=== PATIENT | male | born 1970 | race Caucasian/White ===

== ENCOUNTER 2025-02-20 14:50 | Outpatient (AMB) | payer OTHER, SELFPAY ==
--- NOTE | 2025-02-20 14:51 | A.OFFPC_ITS ---
Vital Signs 02/20/25 14:52 Height 5 ft 7 in Weight 188 lb 6 oz BMI 29.5 BP 116/74 Blood Pressure Location Lt brachial Position Sitting Pulse 78 Pulse Source Pulse Oximeter Pulse Oximetry (%) 99 Oxygen Delivery Method Room Air Intake Visit Reasons: establish care Sports Manager Required: No Accompanied by: Self / Same As Patient Allergies No Known Allergies Allergy (Verified 02/20/25 15:10) Medication List - Last Reconciled 02/20/25 by Jose Cat MD No Known Home Meds Tobacco use date assessed: 02/20/25 Dental Screening Dental Screen Date: 02/20/25 Did you have a dental visit in the last 12 months?: No Did you have a dental problem in the last 6 months where you did not have access to dental care?: No Was dental information given to patient?: No HPI establish care HPI Details Patient comes in today for his annual physical examination and to establish care - is a new patient to the practice His previous PCP was Dr. Immanuel Kraft at [facility] and states that he had to [facility] because his previous PCP is no longer accepting his health insurance Patient states that he feels okay overall Recalls that he hurt his left shoulder a few years ago when he fell while andrzej og baseball with his son but never did get his shoulder checked out since and lately has been experiencing increased pain in left shoulder, with limited ROM due to pain He also has noticed a raised skin lesion on the left side of his abdomen that he would like to have checked out further He denies any headaches or dizziness Denies any chest pains, no increased shortness of breath No nausea/vomiting, no abdominal pain No change in bowel habits noted He denies any acute urinary symptoms He is also requesting to be sent for lung cancer screening as he was a previous smoker although he quit years ago [facility] Medical History (Updated 02/22/25 @ 05:13 by Jose Cat MD) Overweight (BMI 25.0-29.9) Circumcision complication Surgical History (Updated 02/22/25 @ 05:09 by Jose Cat MD) Hx of circumcision History of colonoscopy Social History Housing: House Patient Tobacco Use Status: Current everyday Tobacco user e-Cigarette/Vaping Use: Former Use service: No Current occupational status: employed Current occupational exposures/hazards: No Cognitive needs: No Hearing needs: No Vision needs: Yes Questionnaire PHQ-9 Over the last 2 weeks, how often have you been bothered by any of the following problems? 1. Little interest or pleasure in doing things: not at all 2. Feeling down, depressed, or hopeless: not at all 3. Trouble falling or staying asleep, or sleeping too much: not at all 4. Feeling tired or having little energy: not at all 5. Poor appetite or overeating: not at all 6. Feeling bad about yourself - or that you are a failure or have let yourself or your family down: not at all 7. Trouble concentrating on things, such as reading the newspaper or watching television: not at all 8. Moving or speaking so slowly that other people could have noticed. Or the opposite - being so fidgety or restless that you have been moving around a lot more than usual: not at all 9. Thoughts that you would be better off or of hurting yourself in some way: not at all Total score: 0 Depression Screening Interpretation: Negative Depression Screening Done: Yes 08892 - PHQ-9 Billing: Yes Source: Developed by Drs. Roberto Solis, Malathi Alejandra, Tito Villalta and colleagues, with an educational kathi from [employer]. Thrive Questionnaire Date Thrive assessed: 02/20/25 I am a: Patient What is your living situation today?: I have a steady place to live Within the past 12 months, did the food you bought not last and you didn't have the money to get more?: Never true Within the past 12 months, did you worry whether your food would run out before you got money to buy more?: Never true Do you have trouble paying for medicines?: No Do you have trouble getting transportation to medical appointments?: No Do you have trouble paying your heating and electricity bill?: No Do you have trouble taking care of your child, family member or friend?: No Do you have trouble with day-to-day activities such as bathing, preparing meals, shopping, managing finances, etc.?: No Are you currently unemployed and looking for a job?: No Are you interested in more education?: No Please select the resources that you would like help with: None Currently or been in a relationship where the following occur: No concerns reported THRIVE Score: 0 AUDIT C Alcohol Use Questionnaire (AUDIT-C) 1. How often do you have a drink containing alcohol?: 4 or more times a week 2. How many drinks containing alcohol do you have on a typical day when you are drinking?: 1 or 2 3. How often do you have six or more drinks on one occasion?: Monthly Total Score: 6 Score Reviewed/Action Taken: Yes RAHUL-7 AMB Questionnaire RAHUL-7 Date RAHUL - 7 assessed: 02/20/25 Feeling nervous, anxious, or on edge: 0 = Not at all Not being able to stop or control worryin = Not at all Worrying too much about different things: 0 = Not at all Trouble relaxin = Not at all Being so restless that it is hard to sit still: 0 = Not at all Becoming easily annoyed or irritable: 0 = Not at all Feeling afraid as if something awful might happen: 0 = Not at all Total RAHUL-7 score (0-4 normal; 5-9 mild; 10-14 moderate; 15-21 severe): 0 Source: Developed by Drs. Roberto Solis, Malathi Alejandra, Tito Villalta and colleagues, with an educational kathi from [employer]. Review of Systems Const Denies chills, Denies fatigue, Denies fever(s), Denies headache(s), Denies malaise and Denies weakness Eyes Denies blurry vision, Denies change in vision, Denies irritation and Denies itchy eyes ENT Denies dysphagia, Denies dizziness, Denies otalgia, Denies headache(s), Denies nasal congestion, Denies neck pain, Denies odynophagia and Denies sore throat Card Denies chest pain, Denies rapid heart rate, Denies irregular heart rhythm, Denies palpitations and Denies dyspnea Resp Denies chest congestion, Denies cough, Denies dyspnea and Denies wheezing GI Denies abdominal pain, Denies bloating, Denies constipation, Denies dysphagia, Denies heartburn, Denies diarrhea, Denies nausea, Denies odynophagia and Denies vomiting Denies hematuria, Denies difficulty urinating, Denies dysuria, Denies urinary frequency and Denies urinary urgency Musc Denies back pain, Denies arthralgias, Denies joint swelling, Denies muscle weakness and Denies neck pain Skin/Breast Details: (+) small, slightly raised, hyperpigmented skin lesion on the left side of the abdomen Denies change in pigmentation, Denies rash and Denies unusual bruising Neuro Denies dizziness, Denies headache(s), Denies paresthesias and Denies weakness Endo Denies fatigue and Denies palpitations Aller/Immun Denies itchy eyes and Denies wheezing Physical exam (Primary Care) Vital Signs: Last Vital Signs Pulse 78 02/20/25 14:52 BP 116/74 02/20/25 14:52 Pulse Ox 99 02/20/25 14:52 Oxygen Delivery Method Room Air 02/20/25 14:52 BMI result Body Mass Index 29.5 Tobacco/Smoking Status: Tobacco use Status Tobacco use date assessed 02/20/25 02/20/25 15:01 Patient Tobacco Use Status Current everyday Tobacco 02/20/25 15:01 e-Cigarette/Vaping Use Former Use 02/20/25 15:01 PHQ-9: PHQ-9 Score PHQ-9: Total score 0 02/20/25 15:14 Depression Screening Interpretation: Negative Thrive Assessment: Date of Thrive Assessment Date Thrive assessed 02/20/25 02/20/25 15:01 Currently or been in a relationship where the following occur: No concerns reported Const General: no acute distress, alert and awake Orientation/consciousness: patient oriented x3 HENMT Head: Yes normocephalic and Yes atraumatic Ears: external ears normal, TM's normal bilaterally and EAC's normal General nose exam: No nasal discharge present Face and sinus: Yes normal facial exam and Yes sinuses nontender Teeth and gingiva: dentition normal Throat: Yes posterior oropharynx normal and Yes tonsils normal (no TP congestion) Eyes Eyelids: Yes eyelids normal Conjunctivae: conjunctivae normal Pupils: Equal, round and reactive pupils present EOM: EOMs intact bilaterally Neck Neck: Yes no lymphadenopathy and Yes supple Thyroid: Thyroid normal Resp Auscultation: clear to auscultation bilaterally, no rales and no wheezes Cardio Rate: regular rate Rhythm: regular rhythm Heart sounds: no murmurs GI Palpation (GI): Soft to palpation, nontender and No hepatosplenomegaly present Auscultation: normal bowel sounds General: Yes no CVA tenderness Back/Spine/Pelvis Back: no CVA tenderness Thoracic/Lumbar Spine: thoracic and lumbar spine normal to inspection Skin Other: (+) small, slightly raised, hyperpigmented skin lesion on the left abdominal wall anteriorly Rashes: no rashes Neuro General: patient oriented x3, moves all extremities, no focal motor deficits and CN's II-XI intact bilaterally Cranial nerves: Yes Equal, round and reactive pupils present Cognition (Neuro): normal cognition Gait exam (Neuro): Normal gait present Extrem General: Yes no clubbing, cyanosis or edema Coding Level of Care Code New Pt Prev Care 40-64y(50884) Diagnoses Annual physical exam Z00.00 Left shoulder pain, unspecified chronicity M25.512 Chronicity: unspecified Hyperpigmented skin lesion L81.9 Ex-smoker Z87.891 Overweight (BMI 25.0-29.9) E66.3 Additional Codes PHQ-9 - 51246 - PHQ-9 Billing: Yes ([id number]) Assessment & Plan Assessment & Plan (1) Annual physical exam: Code(s): Z00.00 - Encounter for general adult medical examination without abnormal findings Category: Medical Plan: Check labs States that he is currently up-to-date with his colon cancer screening - we will try to get his records from his previous PCP for documentation (2) Left shoulder pain: Code(s): M25.512 - Pain in left shoulder Category: Medical Qualifiers: Chronicity: unspecified Qualified Code(s): M25.512 - Pain in left shoulder Plan: Will send patient for x-rays of the left shoulder for further evaluation Have advised patient that depending on his x-ray report, we will then determine were to refer him to for further management of shoulder pain, whether it is physical therapy or orthopedics (3) Hyperpigmented skin lesion: Code(s): L81.9 - Disorder of pigmentation, unspecified Category: Medical Plan: Per request, we will refer him to dermatology for further evaluation and management (4) Ex-smoker: Code(s): Z87.891 - Personal history of nicotine dependence Category: Social Hx Plan: Patient states that he quit smoking years ago and is requesting to be sent for lung cancer screening Will send patient for CT lung screening, per request (5) Overweight (BMI 25.0-29.9): Code(s): E66.3 - Overweight Category: Medical Plan: Reinforced diet/exercise as tolerated/lose weight Plan Follow up in 4 months Orders: Orders XR shoulder LT min 2V 02/20/25 M25.512 - Pain in left shoulder TSH reflex Free T4 02/21/25 E78.00 - Pure hypercholesterolemia, unspecified, Z00.00 - Encounter for general adult medical examination without abnormal findings Prostate Specific Antigen 02/21/25 N40.0 - Benign prostatic hyperplasia without lower urinary tract symptoms, Z00.00 - Encounter for general adult medical examination without abnormal findings Vitamin B12 and Folate 02/21/25 E53.8 - Deficiency of other specified B group vitamins CT lung screening 02/20/25 Z87.891 - Personal history of nicotine dependence Complete Blood Count Auto Diff 02/21/25 D64.9 - Anemia, unspecified, Z00.00 - Encounter for general adult medical examination without abnormal findings Lipid Panel 02/21/25 E78.00 - Pure hypercholesterolemia, unspecified, Z00.00 - Encounter for general adult medical examination without abnormal findings Comprehensive [place]. Panel Fast 02/21/25 E78.00 - Pure hypercholesterolemia, unspecified, Z00.00 - Encounter for general adult medical examination without abnormal findings UA CC w/rflx Micro + Cult 02/21/25 R30.0 - Dysuria, Z00.00 - Encounter for general adult medical examination without abnormal findings Vitamin D 25-OH Total 02/21/25 E55.9 - Vitamin D deficiency, unspecified, Z00.00 - Encounter for general adult medical examination without abnormal findings Referrals Dermatology Referral L81.9 - Disorder of pigmentation, unspecified
[2025-02-20 14:52] VITALS: BP 116/74; PULSE 78; O2SAT 99; BMI 29.5
--- OUTSIDE RECORDS SUMMARY | 2025-02-20 17:25 | XMS_ITS | Clinical Summary ---
Author Organization [employer] [place] [facility] it Address [address] [place] [address] Care Team Providers Care Bi Application Developer Name Role Phone Immanuel Kraft MD Primary Care Provider [phone] Allergies No known active allergies Medications naproxen (NAPROSYN) 500 mg tablet Take 1 tablet (500 mg total) by mouth 2 (two) times a day with meals. 10/27/2023 Active diclofenac (Voltaren Arthritis Pain) 1 % topical gel Apply 4gm to area up to 4 x daily 04/30/2020 Active sildenafiL (VIAGRA) 100 mg tablet Start with 1/2 tablet and increase to 1 tablet as needed 30-60 minutes before intercourse. Max is 100mg in 24 hours. 12/18/2018 Active Active Problems Problem Noted Date Diagnosed Date High cholesterol 02/07/2017 Erectile dysfunction 12/26/2015 Onychomycosis 12/26/2015 Overweight 12/26/2015 Anemia 06/03/2014 Lumbago 04/27/2013 Immunizations Name Administration Dates Next Due Influenza, Unspecified 09/05/2019,07/23/2015 Moderna SARS-CoV-2 COVID-19, mRNA, LNP-S, preservative free 04/04/2022,06/27/2021,04/29/2021 Td Tetanus diptheria (Tdvax) 7yo and older 12/26 Tdap Tetanus diptheria acell ular pertussis (Boostrix; Adacel) 7yo and older 02/23/2010 Surgical History Surgery Date Site/Laterality Comments WISDOM TOOTH EXTRACTION PROCEDURE: HISTORICAL WISDOM TEETH EXTRACTION OTHER SURGICAL HISTORY PROCEDURE: MI REPAIR INCOMPLETE CIRCUMCISION COLONOSCOPY 07/2010 PROCEDURE: HISTORICAL COLONOSCOPY; COMMENT: Normal. COLONOSCOPY 07/31/2020 PROCEDURE: HISTORICAL COLONOSCOPY; COMMENT: Diminutive sigmoid colon polyps x2: Hyperplastic x1, tubular adenoma x1. Medical History Medical History Date Comments High cholesterol DX:High cholest marnie Family History Medical History Relation Name Comments Diabetes Father Stroke Paternal Grandfather Relation Name Status Comments Brother 1 Alive Brother 2 Alive Brother 3 Alive Daughter Alive Father Maternal Grandfather Maternal Grandmother Mother Alive Paternal Grandfather Paternal Grandmother Sister 1 Alive Sister 2 Alive Sister 3 Alive Sister 4 Alive Son Alive Social History Tobacco Use Types Packs/Day Years Used Date Smoking Tobacco: Former Cigarettes Q uit: 11/21/2004 Smokeless Tobacco: Never Alcohol Use Standard Drinks/Week Comments Yes 12 (1 standard drink = 0.6 oz pu re alcohol) Sex and Gender Information Value Date Recorded Sex Assigned at Not on file Legal Sex Male 2:08 AM EST Gender Identity Not on file Sexual Orientation Not on file Obstetrics History Last Filed Vital Signs Vital Sign Reading Time Taken Comments Blood Pressure 102/60 09/20/2023 1:26 PM EDT Pulse 52 09/20/2023 1:26 PM EDT Temperature - - Respiratory Rate - - Oxygen Saturation - - Inhaled Oxygen Concentration - - Weight 93 kg (205 lb) 09/20/2023 1:26 PM EDT Height 167.6 cm (5' 6 ) 09/20/2023 1:26 PM EDT Body Mass Index 33.09 09/20/2023 1:26 PM EDT Plan of Treatment Health Maintenance Due Date Last Done Comments Hepatitis B Vaccines (1 of 3 - 19+ 3-dose series) 1987 Pneumococcal Vaccine: 50+ Years (1 of 1 - PCV) 2018 Zoster Vaccines (1 of 2) 2018 Depression Screening 10/24/2022 HIV Screening 10/24/2022 Hepatitis C Screening 10/24/2022 Social Influencers of Health Screening 10/24/2022 COVID-19 Vaccine (2023-2 5 season) 2024 04/04/2022, 06/27/2021, 04/29/2021 Influenza Vaccine (#1) 2024 9, 07/23/2015 Cholesterol Screening (Lipid Panel) 05/20/2027 05/20/2022 Colorectal Cancer Screening: Colonoscopy 07/31/2027 07/31/2020 DTaP,Tdap,and Td Vaccines (3 - Td or Tdap) 12/26/2029 12/26/2019, 02/23/2010 HIB Vaccines Aged Out No longer eligi ble based on patient's age to complete this topic HPV Vaccines Aged Out No longer eligi ble based on patient's age to complete this topic Hepatitis A Vaccines Aged Out No long er eligible based on patient's age to complete this topic IPV Vaccines Aged Out No longer eligi ble based on patient's age to complete this topic MMR Vaccines Aged Out No longer eligi ble based on patient's age to complete this topic Meningococcal ACWY Vaccine Aged Out N o longer eligible based on patient's age to complete this topic Meningococcal B Vacine Aged Out No lo nger eligible based on patient's age to complete this topic Pneumococcal Vaccine: Pediatrics (0 to 5 Years) and At-Risk Patients (6 to 64 Years) Aged Out No longer eligible b ased on patient's age to complete this topic RSV Immunization Patients Under 20 months Aged Out No longer eligible b ased on patient's age to complete this topic Varicella Vaccines Aged Out No longer eligible based on patient's age to complete this topic Procedures Procedure Name Priority Date/Time Associated Diagnosis Comments LIPID PANEL Routine 05/20/2022 COLONOSCOPY Routine 07/31/2020 from Last 3 Months or Most Recently Relevant to Health Maintenance Results * (ABNORMAL) Lipid panel (05/20/2022) LDL/HDL Ratio 5(A) 0 - 4 Triglycerides 139 0 - 150 mg/dL Cholesterol 215(A) 0 - 200 mg/dL HDL 45 >=40 mg/dL LDL Cholesterol 143(A) 0 - 100 mg/dL Blood Venous blood specimen / Unknown Historical Provider LAB BLOOD ORDERABLES Isabel l Result * Colonoscopy (07/31/2020) Colonoscopy No Interpretation , Abstracted Anatomical Region Laterality Modality Other Historical Provider HEALTH MAINTENANCE Final Result from Last 3 Months or Most Recently Relevant to Health Maintenance Care Teams Bi Application Developer Relationship Specialty Start Date End Date Immanuel Kraft MD PCP - General 11/03/09
== END 2025-02-20 15:30 | disposition home or self-care (01) ==
LOC: HO.HMCH 14:50
PROVIDERS: PCP Internal Medicine; Visit Provider Internal Medicine
DX: Z00.00 Encounter for general adult medical examination without abnormal findings (principal); M25.512 Pain in left shoulder; L81.9 Disorder of pigmentation, unspecified; Z87.891 Personal history of nicotine dependence; E66.3 Overweight

== ENCOUNTER → 2025-02-20 14:50 | Outpatient (BNVA) | payer OTHER, SELFPAY | PROVIDERS: PCP Internal Medicine; Visit Provider Internal Medicine | DX: Z00.00 Encounter for general adult medical examination without abnormal findings (principal); M25.512 Pain in left shoulder; L81.9 Disorder of pigmentation, unspecified; E66.3 Overweight; Z68.29 Body mass index [BMI] 29.0-29.9, adult; Z87.891 Personal history of nicotine dependence | CPT/HCPCS: 96127 ==

== ENCOUNTER 2025-02-21 06:25 | Outpatient (REF) | payer OTHER, SELFPAY ==
[2025-02-21 06:46] LABS: MANUAL DIFF FLAG NO
[2025-02-21 07:21] LABS: Basophils Percent Auto 0.8 % (0-2); Eosinophils Absolute Auto 0.1 X10*3/uL (0.0-0.4); Eosinophils Percent Auto 3.8 % (0-4); Hematocrit 40.5 % (42.0-52.0); Hemoglobin 13.9 g/dl (14.0-18.0); Imm Gran Abs Auto 0.01 X10*3/uL (0.00-0.03); Imm Gran Pct Auto 0.3 % (0.0-0.4); Lymphocytes Absolute Auto 1.3 X10*3/uL (1.2-4.9); Mean Corpuscular HGB Conc 34.3 g/dl (31.0-36.0); Mean Corpuscular Hemoglobin 27.7 pg (27.0-33.0); Mean Corpuscular Volume 80.7 fL (80.0-98.0); Mean Platelet Volume 10.2 fL (9.4-12.4); Monocytes Absolute Auto 0.4 X10*3/uL (0.1-1.2); Monocytes Percent Auto 9.4 % (2-11); Neutrophils Absolute Auto 1.9 x10*3/uL (2.0-8.3); Neutrophils Percent Auto 49.7 % (45-73); Platelet Count 212 X10*3/uL (160-400); Red Blood Count 5.02 X10*6/uL (4.60-5.80); Red Cell Distribution Width 12.2 % (11.0-16.0); White Blood Count 3.7 X10*3/uL (4.8-10.8)
[2025-02-21 07:34] LABS: Appearance Urine Clear; Color Urine Yellow; Glucose Urine UA Negative (Negative); Leukocyte Esterase Urine Negative (Negative); Nitrite Urine Negative (Negative); PH 6.5 (5.0-9.0); Specific Gravity - Urine 1.015 (1.005-1.025); Urine Blood Negative (Negative); Urine Ketones Negative (Negative); Urine Protein Negative (Neg-Trace)
[2025-02-21 08:03] LABS: Alanine Aminotransferase 21 U/L (0-40); Albumin Level 4.3 g/dL (3.5-5.0); Alkaline Phosphatase 36 U/L (39-117); Anion Gap 9 (12-20); Aspartate Amino Transferase 20 U/L (5-37); Bilirubin Total 1.1 mg/dL (0.0-1.0); Blood Urea Nitrogen 18 mg/dL (9-16); Calcium 9.2 mg/dL (8.4-10.2); Carbon Dioxide 26 mmol/L (22-29); Chloride 111 mmol/L (96-108); Cholesterol 207 mg/dL (<200); Estimated Glomerular Filt Rate > 60; Glucose Fasting 97 mg/dL (60-99); HDL Cholesterol 36 mg/dL (>40); LDL Cholesterol Calculated 158 mg/dL (<100); Potassium 4.1 mmol/L (3.3-5.1); Sodium 142 mmol/L (135-145); Total Protein 6.5 g/dL (6.5-8.0); Triglycerides 68 mg/dL (<150)
[2025-02-21 08:21] LABS: TSH reflex Free T4 0.94 uIU/mL (0.32-4.0); Vitamin D 25-OH Total 22.6 ng/mL (>30)
[2025-02-21 08:23] LABS: Folate 12.9 ng/mL (> or = 4.0); Vitamin B12 357 pg/mL (200-900)
== END 2025-02-21 06:26 | disposition home or self-care (01) ==
LOC: HO.LAB 06:25
PROVIDERS: PCP Internal Medicine; Visit Provider Internal Medicine
DX: Z00.00 Encounter for general adult medical examination without abnormal findings (principal); N40.0 Benign prostatic hyperplasia without lower urinary tract symptoms; E53.8 Deficiency of other specified B group vitamins; E78.00 Pure hypercholesterolemia, unspecified; E55.9 Vitamin D deficiency, unspecified; D64.9 Anemia, unspecified; R30.0 Dysuria; Z12.5 Encounter for screening for malignant neoplasm of prostate
CPT/HCPCS: 36415; 80053; 80061; 81003; 82306; 82607; 82746; 84153; 84443; 85025